=== PATIENT | male | born 1980 | race Caucasian/White ===

== ENCOUNTER → 2019-09-24 | Outpatient (CLI) | payer OTHER ==
--- NOTE | 2019-09-26 08:39 | RAD ---
EXAM DESCRIPTION: Chest,2 Views CLINICAL HISTORY: HYPERTENSION COMPARISON: None TECHNIQUE: PA/lateral FINDINGS: There is no acute appearing cardiac or pulmonary abnormality. Heart size is normal with normal pulmonary vascularity. No pleural effusion or pneumothorax. Lungs are clear with no consolidating infiltrate. Lateral view shows intact sternum and T-spine. IMPRESSION: No acute process is identified in the chest. Electronically signed by: Luis Manuel Loya MD 09/26/2019 8:37 AM ENGINE [employer] UP O[employer]ATOR
== END ==
LOC: LAB.O 12:43
PROVIDERS: ATTEND Nurse Practitioner Acute Care
DX: R80.8 Other proteinuria (principal); I10 Essential (primary) hypertension